=== PATIENT | female | born 1935 | race Caucasian/White ===

== ENCOUNTER 2016-11-30 09:26 | Inpatient (IN) | payer MEDICARE ==
[~2016-11-30] VITALS: Ht 162.6 cm; Wt 37.7 kg
[2016-11-30 12:05] LABS: HEMOGLOBIN 11.7 gm/dl (12.3-15.3); RED BLOOD COUNT 4.28 M/UL (4.00-5.10); WHITE BLOOD COUNT 10.2 K/UL (4.5-11.0)
[2016-11-30] MEDS ORDERED: METOPROLOL SUCC25 MG PO (13:32)
[2016-11-30] MEDS ORDERED: VENTOLIN/PROVE0.5 ML INH (13:33)
[2016-11-30] MEDS ORDERED: TRAMADOL HCL50 MG PO (13:34)
[2016-11-30] MEDS ORDERED: TRAZODONE HCL100 MG PO (13:35)
[2016-11-30] MEDS ORDERED: CATAPRES 0.1MG0.1 MG PO (13:40)
[2016-12-01 03:52] LABS: HEMOGLOBIN 10.7 gm/dl (12.3-15.3); RED BLOOD COUNT 3.98 M/UL (4.00-5.10); WHITE BLOOD COUNT 8.8 K/UL (4.5-11.0)
[2016-12-02 07:51] LABS: HEMOGLOBIN 12.2 gm/dl (12.3-15.3)
[2016-12-02 07:58] LABS: RED BLOOD COUNT 4.46 M/UL (4.00-5.10); WHITE BLOOD COUNT 5.5 K/UL (4.5-11.0)
[2016-12-02 08:08] LABS: BUN/CREATININE RATIO 33 (0-10)
--- NOTE | 2016-12-02 17:28 | NUR ---
RETURNED FROM [employer] RIGHT GROIN CATH SITE WITH NO HEMATOMA OR BRUISING PRESSURE DRESSING INTACT
[2016-12-03] MEDS ORDERED: NORVASC 5 MG TAB5 MG PO (11:54)
[2016-12-03] MEDS ORDERED: ADULT LOW DOSE81 MG PO (11:55)
[2016-12-03] MEDS ORDERED: LIPITOR TAB 1010 MG PO (11:57)
[2016-12-03] MEDS ORDERED: COZAAR 50MG TAB50 MG PO (12:00)
== END 2016-12-03 11:30 | disposition home or self-care (01) | DRG 280 ==
LOC: PROG CARE 09:26
PROVIDERS: Physician Assistant Medical; ADMIT Internal Medicine Cardiovascular Disease
PROC: 4A023N7 Measurement of Cardiac Sampling and Pressure, Left Heart, Percutaneous Approach (ICD-10-PCS; principal; 2016-12-02)
PROC: B2111ZZ Fluoroscopy of Multiple Coronary Arteries using Low Osmolar Contrast (ICD-10-PCS; 2016-12-02)
DX: I21.4 Non-ST elevation (NSTEMI) myocardial infarction (principal); J18.9 Pneumonia, unspecified organism; E43 Unspecified severe protein-calorie malnutrition; J96.11 Chronic respiratory failure with hypoxia; J44.0 Chronic obstructive pulmonary disease with (acute) lower respiratory infection; Z68.1 Body mass index [BMI] 19.9 or less, adult; I25.10 Atherosclerotic heart disease of native coronary artery without angina pectoris; I71.4 Abdominal aortic aneurysm, without rupture; I12.9 Hypertensive chronic kidney disease with stage 1 through stage 4 chronic kidney disease, or unspecified chronic kidney disease; N18.3 Chronic kidney disease, stage 3 (moderate); I16.0 Hypertensive urgency; E78.5 Hyperlipidemia, unspecified; I08.3 Combined rheumatic disorders of mitral, aortic and tricuspid valves; F17.210 Nicotine dependence, cigarettes, uncomplicated; Z86.73 Personal history of transient ischemic attack (TIA), and cerebral infarction without residual deficits; Z79.02 Long term (current) use of antithrombotics/antiplatelets; Z79.82 Long term (current) use of aspirin; Z99.81 Dependence on supplemental oxygen; Z79.899 Other long term (current) drug therapy; Z88.8 Allergy status to other drugs, medicaments and biological substances; Z90.5 Acquired absence of kidney; Z90.710 Acquired absence of both cervix and uterus; Z90.49 Acquired absence of other specified parts of digestive tract; Z98.890 Other specified postprocedural states
CPT/HCPCS: 36415; 71010; 80048; 82550; 82553; 83735; 84439; 84443; 84484; 85025; 85027; 85610; 85730; 93005; 94640; 94664; C1769; C1887; J0456; J0696; J1644; J2250; J7030; J7040; J7050; Q9965